=== PATIENT | female | born 1990 | race Caucasian/White ===

== ENCOUNTER → 2021-05-18 | Outpatient (CLI) | payer BC ==
[~2021-05-18] MED LIST: MOBIC 7.5MG7.5 MG PO; NORCO 325 MG-51 TAB PO
== END ==
LOC: COL.RAD 12:13
DX: Z31.41 Encounter for fertility testing (principal)
CPT/HCPCS: Q9967

== ENCOUNTER 2023-10-21 23:24 | Outpatient (CLI) | payer OTHER ==
[~2023-10-21] VITALS: Ht 162.6 cm; Wt 87.1 kg
--- NOTE | 2023-10-21 23:35 | NUR ---
PT TO UNIT AMBULATORY WITH SPOUSE WITH CONCERNS OF ELEVATED BP AT HOME. PT IS A G2L0 AT 33.5 WEEKS. PT ORIENTED TO ROOM CHANGED INTO GOWN, EFMX2 APPLIED, VS OBTAINED. DR. HENDRICKS HAD CALLED THE UNIT AND NOTIFIED STAFF THAT PT WOULD BE COMING. GAVE ORDERS FOR SERIAL BPs, CBC, CMP, CLEAN CATCH UA, AND URINE PROTEIN/CREATININE RATIO. TO CALL DR. HENDRICKS WITH LAB RESULTS.
[2023-10-21] MEDS ORDERED: LR 1,000 ML IV PRN (23:45)
[2023-10-22] VITALS: BP 140/91; PULSE 94; TEMP 98.1
[2023-10-22 00:16] LABS: COLLECTION METHOD CLEAN CATCH
[2023-10-22 00:23] LABS: URINE APPEARANCE CLEAR (CLEAR/HAZY); URINE BLOOD NEGATIVE (NEGATIVE); URINE COLOR YELLOW (YELLOW); URINE GLUCOSE NEGATIVE (NEGATIVE); URINE KETONE NEGATIVE (NEGATIVE); URINE NITRATE NEGATIVE (NEGATIVE); URINE PROTEIN(semi-quant) NEGATIVE (NEGATIVE); URINE UROBILINOGEN 0.2 E.U/dL (0.2-1.0)
[2023-10-22 00:27] LABS: BASO # 0.1 K/mm3 (0.0-0.2); BASO % 0.4 % (0.0-2.0); EOS # 0.1 K/mm3 (0.0-0.7); EOS % 0.9 % (0.0-4.0); GRAN # 9.3 K/mm3 (1.4-6.5); GRAN % 67.4 % (42.2-75.2); HEMOGLOBIN 11.1 g/dl (12.5-16.0); LYMPH # 3.5 K/mm3 (1.2-3.4); LYMPH % 25.6 % (20.0-51.0); MEAN CELL VOLUME 88 fl (80.0-100.0); MEAN CORPUSCULAR HEMOGLOBIN 30 pg (27-31); MEAN CORPUSCULAR HGB CONC 34 g/dl (33.0-37.0); MEAN PLATELET VOLUME 9.8 fl (7.4-10.4); MONO # 0.7 K/mm3 (0.1-0.6); PLATELET COUNT 280 K/mm3 (130-400); RED BLOOD COUNT 3.75 M/mm3 (4.10-5.30); REDCELL DISTRIBUTION WIDTH-CV 13.1 % (11.5-14.5)
[2023-10-22 00:29] LABS: HEMATOCRIT 33.1 % (37.0-47.0)
[2023-10-22 00:30] VITALS: BP 150/89; PULSE 99
[2023-10-22 00:44] LABS: BILIRUBIN,TOTAL 0.3 mg/dL (0.2-1.2); CALCIUM 9.7 mg/dL (8.4-10.2); CREATININE, serum 0.61 mg/dL (0.57-1.11); POTASSIUM 3.5 mmol/L (3.5-4.5); TOTAL PROTEIN 6.1 gm/dL (6.2-8.1)
[2023-10-22] MEDS ORDERED: STOOL SOFTENER100 M2 PO (00:44)
[2023-10-22] MEDS ORDERED: MAGNESIUM200 MG PO (00:44)
[2023-10-22] MEDS ORDERED: PRILOSEC 20MG20 MG PO (00:45)
[2023-10-22] MEDS ORDERED: TUMS500 MG PO (00:45)
[2023-10-22] MEDS ORDERED: PRENATAL TABLET PO (00:46)
[2023-10-22] MEDS ORDERED: VITAMIN D31000 I1 PO (00:47)
[2023-10-22] MEDS ORDERED: ASPIRIN 81M81 MG/TA2 PO (00:49)
[2023-10-22] MEDS ORDERED: LIPITOR 40MG TA40 MG PO (00:51)
[2023-10-22] MEDS ORDERED: SLOW FE137 M1 PO (00:52)
[2023-10-22] MEDS ORDERED: OMEGA-3 1000 MG1 CAP PO (00:52)
[2023-10-22] MEDS ORDERED: MASON NATURAL1200 MG PO (00:53)
[2023-10-22] MEDS ORDERED: VALTREX 50500 MG/TAB PO (00:54)
[2023-10-22 01:08] VITALS: BP 125/82; PULSE 87
--- NOTE | 2023-10-22 01:25 | NUR ---
0108- MONTIORING DCd. PT MAY DC PIERRE PER DR. HENDRICKS. 0125- DISCHARGE INSTRUCTIONS REVIEWED WITH PT AND SPOUSE. PT INSTRUCTED TO TAKE BP AT HOME ONCE DAILY. INSTRUCTED TO REST FOR 15 MINUTES PRIOR TO TAKING BP, IF SYSTOLIC OVER 160 OR DIASTOLIC OVER 110 PT IS TO RETURN TO THE UNIT FOR FURTHER EVALUATION. PT IS TO KEEP SCHEDULED APPOINTMENT WITH DR. HONEYCUTT ON 11/04/23 AND TO CONTACT IF SOONER IF FURTHER QUESTIONS OR CONCERNS ARISE. UNDERSTANDING VERBALIZED BY PT AND SPOUSE. PT ALSO TO RETURN IF SROM, CONSISTENT/PAINFUL CTXs, OR VAGINAL BLEEDING. PT AND SPOUSE OFF UNIT AMBULATORY.
== END 2023-10-22 01:25 | disposition home or self-care (01) ==
LOC: LDRO 23:24 → LDR 23:35 → LDRO 10-22 01:25
PROVIDERS: Obstetrics & Gynecology
DX: O16.3 Unspecified maternal hypertension, third trimester (principal); Z3A.33 33 weeks gestation of pregnancy
CPT/HCPCS: OP